=== PATIENT | female | born 1980 | race Caucasian/White ===

== ENCOUNTER → 2017-07-28 | Outpatient (CLI) | payer OTHER ==
[2017-07-28 20:45] LABS: THYROID PEROXIDASE ANTIBODY < 28.0 U/ML (<60.0)
[2017-07-28 20:51] LABS: IMMUNOGLOBULIN G 1050 MG/DL (681-1648); THYROXINE (T4) 9.7 UG/DL (4.5-12.0)
== END ==
LOC: M LRY 14:53
PROVIDERS: ATTEND Nurse Practitioner Pediatrics
DX: F90.2 Attention-deficit hyperactivity disorder, combined type (principal); F34.1 Dysthymic disorder; R63.5 Abnormal weight gain; E28.2 Polycystic ovarian syndrome

== ENCOUNTER → 2019-02-15 | Outpatient (CLI) | payer OTHER ==
--- NOTE | 2019-02-15 12:41 | REP ---
MR LUMBAR SPINE WITHOUT CONTRAST: HISTORY: Back pain. There is no disc bulge or herniation at the L1-2 through L3-4 and L5-S1 levels. The nerves exit the neural foramina without compression. A diffuse disc bulge is present at the L4-5 level. There is minimal compression of the thecal sac. The L4 nerves exit the neural foramina without compression. The conus medullaris is normal in appearance terminating at the level of the T12-L1 intervertebral disc. Normal signal intensity is present in the lumbar intervertebral discs and vertebral bodies. IMPRESSION: Diffuse disc bulge at the L4-5 level with minimal thecal sac compression. Electronically Signed by Timmy Rubin MD 02/15/2019 12:43 P
== END ==
LOC: M RAD 09:39
PROVIDERS: ATTEND Family Medicine
DX: M51.26 Other intervertebral disc displacement, lumbar region (principal)